=== PATIENT | female | born 1940 | race Caucasian/White ===

== ENCOUNTER → 2018-02-18 | Outpatient (CLI) | payer MEDICARE ==
[~2018-02-18] MED LIST: ALEN70 PO; Norco 5-325 Ta1 EACH PO; POLY500 PO; WARF10 PO
[2018-02-22 15:07] LABS: HPV 16 Negative (Negative); HPV 18 Negative (Negative); HPV OTHER HR TYPES Negative (Negative)
== END | disposition home or self-care (01) ==
LOC: LAB 17:12 → LAB SHORT 17:12
PROVIDERS: Nurse Practitioner Women's Health
DX: Z12.4 Encounter for screening for malignant neoplasm of cervix (principal)
CPT/HCPCS: 87624; G0123

== ENCOUNTER → 2018-07-23 | Outpatient (CLI) | payer MEDICARE ==
[2018-07-23 13:55] LABS: BASOPHILS ABSOLUTE AUTO 0.03 K/mm3 (0.00-0.23); BASOPHILS PERCENT AUTO 1 % (0-2); EOSINOPHILS ABSOLUTE AUTO 0.06 K/mm3 (0.00-0.68); EOSINOPHILS PERCENT AUTO 2 % (0-6); Hematocrit 41.4 % (33.0-51.0); Hemoglobin 13.6 g/dL (11.5-16.0); IMMATURE GRAN ABSOLUTE AUTO 0.01 K/mm3 (0.00-0.10); IMMATURE GRAN PERCENT AUTO 0 % (0-1); LYMPHOCYTES ABSOLUTE AUTO 1.02 K/mm3 (0.84-5.20); LYMPHOCYTES PERCENT AUTO 26 % (21-46); MONOCYTES ABSOLUTE AUTO 0.45 K/mm3 (0.16-1.47); MONOCYTES PERCENT AUTO 12 % (4-13); Mean Corpuscular HGB 30.9 pg (26.0-34.0); Mean Corpuscular HGB Conc 32.9 g/dL (31.5-36.5); Mean Corpuscular Volume 94 fL (80-100); Mean Platelet Volume 10.9 fL (9.1-12.4); NEUTROPHILS ABSOLUTE AUTO 2.29 K/mm3 (1.96-9.15); NEUTROPHILS PERCENT AUTO 59 % (41-73); RDW Coefficient Variation 12.4 % (11.7-14.2); White Blood Cell Count 3.86 K/mm3 (4.00-11.30)
[2018-07-23 14:13] LABS: Alanine Aminotransfer (ALT/SGP 24 U/L (12-78); Albumin, Blood 3.4 g/dL (3.4-5.0); Alk Phos 68 U/L (40-126); Anion Gap 7 mmol/L (6-16); Aspartate Aminotrans (AST/SGOT 23 U/L (12-37); Bilirubin, Total 0.4 mg/dL (0.1-1.0); Blood Urea Nitrogen 19 mg/dL (8-24); Bun/Creatinine Ratio 24.4 (12.0-20.0); CO2, Blood 30 mmol/L (21-32); Calcium, Blood 8.7 mg/dL (8.5-10.1); Chloride, Blood 102 mmol/L (98-108); Creatinine, Blood 0.78 mg/dL (0.40-1.00); Globulin, Blood 3.4 g/dL (2.2-4.0); Glomerular Filtration Rate >60 (60-); Glucose, Blood 101 mg/dL (70-99); Potassium, Blood 3.9 mmol/L (3.5-5.5); Sodium, Blood 139 mmol/L (136-145); Total Protein, Blood 6.8 g/dL (6.4-8.2)
[2018-07-23 14:22] LABS: Platelet Count 76 K/mm3 (150-400)
== END | disposition home or self-care (01) ==
LOC: LAB EV 13:51 → LAB SHORT 13:51
PROVIDERS: General Practice
DX: R07.9 Chest pain, unspecified (principal)
CPT/HCPCS: 80053; 83690; 85025

== ENCOUNTER 2019-04-19 13:34 | Inpatient (IN) | payer MEDICARE ==
[~2019-04-19] VITALS: Ht 160 cm; Wt 53.6 kg
[~2019-04-19 13:34] MED LIST changes: +ACET500 PO; +ASCO500 PO; +CALCITRATE200 MG PO; +CHOLEAST PO; +ERGO400 PO; +Estradiol1 MG VAG; +FISH OIL PO; +Glucosamine Ch1 EAC4 PO; +Hair, Skin & N1 EACH PO; +Lecithin-191200 MG PO; +MAGNESIUM OXID500 MG PO; +TIZANIDINE HCL2 MG PO; +TYLECOD3 PO; +VITAMIN B122500 MCG PO; +Vitamin E100 UNIT PO; +ZYNCOL30 MG PO
[2019-04-19 14:20] LABS: International Normalized Ratio 0.97; Prothrombin Time Results 10.3 Sec (9.7-11.5)
[2019-04-20] MEDS ORDERED: ENOX60I SC (06:53)
--- NOTE | 2019-04-20 16:22 | NUR ---
SHIFT SUMMARY: LENI HAD A GENERAL ANESTHETIC FOR HER RIGHT HIP ARTHROPLASTY DONE BY DR. ALEJANDRO. SHE IS ALERT AND ORIENTED, SITTING IN THE RECLINER AT BEDSIDE. SHE HAS HER CALL LIGHT IN REACH AND SHE IS ABLE TO MAKE HER NEEDS KNOWN. SHE IS TOLERATING PO INTAKE WELL. SHE HAS BEEN UP WALKING AND TOLERATED THAT WELL. SHE DID WORK WITH THERAPY THIS AFTERNOON. SHE HAS VISITORS IN THE ROOM.
[2019-04-21 04:19] LABS: BASOPHILS ABSOLUTE AUTO 0.02 K/mm3 (0.00-0.23); BASOPHILS PERCENT AUTO 0 % (0-2); EOSINOPHILS PERCENT AUTO 0 % (0-6); Hematocrit 29.1 % (33.0-51.0); Hemoglobin 8.9 g/dL (11.5-16.0); IMMATURE GRAN ABSOLUTE AUTO 0.02 K/mm3 (0.00-0.10); IMMATURE GRAN PERCENT AUTO 0 % (0-1); LYMPHOCYTES ABSOLUTE AUTO 1.04 K/mm3 (0.84-5.20); LYMPHOCYTES PERCENT AUTO 11 % (21-46); MONOCYTES ABSOLUTE AUTO 1.15 K/mm3 (0.16-1.47); MONOCYTES PERCENT AUTO 12 % (4-13); Mean Corpuscular HGB Conc 30.6 g/dL (31.5-36.5); Mean Corpuscular Volume 95 fL (80-100); Mean Platelet Volume 11.1 fL (9.1-12.4); NEUTROPHILS ABSOLUTE AUTO 7.72 K/mm3 (1.96-9.15); NEUTROPHILS PERCENT AUTO 78 % (41-73); Platelet Count 110 K/mm3 (150-400); RDW Coefficient Variation 13.4 % (11.7-14.2); RDW Standard Deviation 46.6 fL (35.1-46.3); Red Blood Cell Count 3.07 M/mm3 (3.80-5.20); White Blood Cell Count 9.95 K/mm3 (4.00-11.30)
[2019-04-21 04:29] LABS: International Normalized Ratio 1.02; Prothrombin Time Results 10.8 Sec (9.7-11.5)
[2019-04-21 04:32] LABS: Anion Gap 4 mmol/L (6-16); Blood Urea Nitrogen 13 mg/dL (8-24); Bun/Creatinine Ratio 19.4 (12.0-20.0); CO2, Blood 31 mmol/L (21-32); Calcium, Blood 8.1 mg/dL (8.5-10.1); Chloride, Blood 105 mmol/L (98-108); Creatinine, Blood 0.67 mg/dL (0.40-1.00); Glomerular Filtration Rate >60 (60-); Glucose, Blood 114 mg/dL (70-99); Potassium, Blood 3.5 mmol/L (3.5-5.5); Sodium, Blood 140 mmol/L (136-145)
--- NOTE | 2019-04-21 04:34 | NUR ---
SHIFT SUMMARY: PT POD #1 FOR RIGHT TOTAL HIP. DRESSINGS CDI WITH POLAR PACK IN PLACE. PT AMBULATING WITH FWW AND SBA. BP LOW T/O SHIFT. PT REPORTS THIS IS NORMAL FOR HER. H&H STABLE UPON MORNING LABS. PT ASYMPTOMATIC. PAIN MANAGED WITH TORADOL AND TYLENOL PER EMAR. VOIDING WELL AND ELSIE PO. FLUIDS INFUSING. PLAN FOR POSSIBLE DISCHARGE TODAY.
--- NOTE | 2019-04-21 15:29 | NUR ---
SHIFT SUMMARY PT A&OX4, LEFT FLOOR VIA WC WITH RN, WITH ALL PERSONAL POSSESSIONS INCLUDING DC PACKET, 2 AQUACEL DRESSINGS. PT REP HAVING SCRIPTS FILLED AT HOME FOR LOVENOX, COUMADIN, PAIN MED. DC INSTRUCTIONS PROVIDED. PT REP UNDERSTANDING THOSE INSTRUCTIONS INCLUDING 2 WK FU WITH SURGEON, OK TO SHOWER, NO TUB/JACUZZI, CHANGE DRESSINGS ON SUNDAYS/WEDNESDAYS, WHEN TO CALL THE DOCTOR. IV DC'D.
== END 2019-04-21 15:09 | disposition home or self-care (01) | DRG 470 ==
LOC: SURS 04-20 05:57 → PRE IP 04-20 07:30 → SURS 04-20 10:54
PROVIDERS: ADMIT Orthopaedic Surgery
PROC: 0SR904A Replacement of Right Hip Joint with Ceramic on Polyethylene Synthetic Substitute, Uncemented, Open Approach (ICD-10-PCS; principal; 2019-04-20 07:30)
DX: M16.11 Unilateral primary osteoarthritis, right hip (principal); D68.2 Hereditary deficiency of other clotting factors; Z86.718 Personal history of other venous thrombosis and embolism; Z79.01 Long term (current) use of anticoagulants; Z79.899 Other long term (current) drug therapy; Z88.0 Allergy status to penicillin; Z88.8 Allergy status to other drugs, medicaments and biological substances; Z87.891 Personal history of nicotine dependence
CPT/HCPCS: 36415; 72170; 80048; 82947; 83735; 85025; 85610; 85730; 86850; 86900; 86901; 88300; 97110; 97116; 97162; 97165; 97530; 97535; C1713; C1776; J0171; J0735; J1100; J1650; J1885; J2250; J2405; J2704; J2795; J3010; J3370; J7120

== ENCOUNTER 2019-06-03 14:04 | Emergency (ER) | payer MEDICARE ==
[~2019-06-03] VITALS: Ht 160 cm; Wt 51.3 kg
[~2019-06-03 14:04] MED LIST changes: +ENOX60I SC
== END 2019-06-03 16:30 | disposition home or self-care (01) ==
LOC: ER 14:04
DX: I82.5Z1 Chronic embolism and thrombosis of unspecified deep veins of right distal lower extremity (principal); Z88.1 Allergy status to other antibiotic agents; Z88.0 Allergy status to penicillin; Z79.899 Other long term (current) drug therapy; Z79.01 Long term (current) use of anticoagulants; Z87.891 Personal history of nicotine dependence; I82.409 Acute embolism and thrombosis of unspecified deep veins of unspecified lower extremity; R60.9 Edema, unspecified; I82.411 Acute embolism and thrombosis of right femoral vein; I82.811 Embolism and thrombosis of superficial veins of right lower extremity
CPT/HCPCS: 36416; 85610; 93971; 99283-25

== ENCOUNTER → 2020-04-22 | Outpatient (CLI) | payer MEDICARE ==
[~2020-04-22] MED LIST changes: +ACET325 PO; +ENOX60I; +ROXICODONE5 MG PO
[2020-04-22 17:21] LABS: International Normalized Ratio 0.97; Prothrombin Time Results 10.4 Sec (9.7-11.5)
== END | disposition home or self-care (01) ==
LOC: LAB EV 16:48 → LAB SHORT 16:48
PROVIDERS: Orthopaedic Surgery
DX: Z01.812 Encounter for preprocedural laboratory examination (principal)
CPT/HCPCS: 85610; 85730

== ENCOUNTER 2020-04-23 06:08 | Day surgery (SDC) | payer MEDICARE ==
[~2020-04-23] VITALS: Ht 162.6 cm; Wt 51.3 kg
[~2020-04-23 06:08] MED LIST changes: -ENOX60I; -ROXICODONE5 MG PO
--- NOTE | 2020-04-23 07:32 | NUR ---
History, Chart, Medications and Allergies reviewed before start of procedure. Pre-Op teaching done. Pt verbalizes understanding. Patient confirms NPO status and agrees with scheduled surgery.
--- NOTE | 2020-04-23 10:56 | NUR ---
ADMISSION TO UNIT PT ARRIVED TO UNIT AT APROX 1050 FROM PACU. AQUACEL DRESSING TO L ANTERIOR HIP C/D/I. PT DENIES PAIN. DERMATOMES L2-NO GROSS MVMT PRESENT BLE. PT DENIES PAIN.
--- NOTE | 2020-04-23 11:05 | NUR ---
THIS RN ASSUMING CARE OF PT, BEEN GIVEN REPORT.
--- NOTE | 2020-04-23 17:37 | NUR ---
PT REQ TO HAVE COUMADIN AT BEDTIME PER HER USUAL HOME REGIMEN.
--- NOTE | 2020-04-23 17:38 | NUR ---
SHIFT SUMMARY PT HAD PROCEDURE TODAY. PT BEEN UP AND WORKED WITH THERAPY. PT UP TO CHAIR. PT VOIDING, TOLERATING DIET. PT CONT TO REPORT MINIMAL PAIN.
[2020-04-24 06:00] LABS: BASOPHILS ABSOLUTE AUTO 0.02 K/mm3 (0.00-0.23); BASOPHILS PERCENT AUTO 0 % (0-2); EOSINOPHILS ABSOLUTE AUTO 0.01 K/mm3 (0.00-0.68); EOSINOPHILS PERCENT AUTO 0 % (0-6); Hematocrit 34.9 % (33.0-51.0); Hemoglobin 10.5 g/dL (11.5-16.0); IMMATURE GRAN ABSOLUTE AUTO 0.02 K/mm3 (0.00-0.10); IMMATURE GRAN PERCENT AUTO 0 % (0-1); LYMPHOCYTES ABSOLUTE AUTO 1.42 K/mm3 (0.84-5.20); LYMPHOCYTES PERCENT AUTO 19 % (21-46); MONOCYTES ABSOLUTE AUTO 0.82 K/mm3 (0.16-1.47); MONOCYTES PERCENT AUTO 11 % (4-13); Mean Corpuscular HGB 29.2 pg (26.0-34.0); Mean Corpuscular HGB Conc 30.1 g/dL (31.5-36.5); Mean Corpuscular Volume 97 fL (80-100); Mean Platelet Volume 11.3 fL (9.1-12.4); NEUTROPHILS ABSOLUTE AUTO 5.15 K/mm3 (1.96-9.15); NEUTROPHILS PERCENT AUTO 69 % (41-73); Platelet Count 82 K/mm3 (150-400); RDW Coefficient Variation 13.2 % (11.7-14.2); RDW Standard Deviation 47.4 fL (35.1-46.3); White Blood Cell Count 7.44 K/mm3 (4.00-11.30)
[2020-04-24 06:16] LABS: Anion Gap 5 mmol/L (6-16); Blood Urea Nitrogen 15 mg/dL (8-24); CO2, Blood 28 mmol/L (21-32); Calcium, Blood 8.6 mg/dL (8.5-10.1); Chloride, Blood 112 mmol/L (98-108); Creatinine, Blood 0.75 mg/dL (0.40-1.00); Glomerular Filtration Rate >60 (60-); Glucose, Blood 101 mg/dL (70-99); Magnesium, Blood 2.1 mg/dL (1.6-2.4); Potassium, Blood 3.9 mmol/L (3.5-5.5); Sodium, Blood 145 mmol/L (136-145)
--- NOTE | 2020-04-24 06:50 | NUR ---
SHIFT SUMMARY: LENI IS A&OX4. VSS, NO ACUTE EVENTS OVERNIGHT. AQUACELL TO LEFT HIP C/D&I. SHE IS TOLERATING PO INTAKE WELL. SHE REPORTS ADEQUATE PAIN CONTROL WITH APAP AND TORADOL. SHE IS A ONE PERSON ASSIST TO THE BATHROOM AND IS AMBULATING IN THE HALLWAY WITH THE FWW. LINK HOSE, PAS, AND POLAR PACK IN PLACE. PT USING K-PAD FOR COMFORT. SHE IS ABLE TO MAKE HER NEEDS KNOWN. SHE IS LYING IN BED WITH HER CALL LIGHT IN REACH. WILL REPORT TO DAY SHIFT RN.
--- NOTE | 2020-04-24 08:08 | NUR ---
BRAD HERE TO SEE PT, DISCUSSED MEDICATIONS INCLUDING LOVENOX AND COUMADIN WELL VITAMINS.
[2020-04-24] MEDS ORDERED: ENOX60I (08:50)
[2020-04-24] MEDS ORDERED: ROXICODONE5 MG PO (08:51)
--- NOTE | 2020-04-24 09:59 | NUR ---
THERAPY RECENTLY WORKING WITH PT.
--- NOTE | 2020-04-24 16:11 | NUR ---
PT WANTING TO WAIT TO SEE DR MAHONEY BEFORE GOING HOME, DR MAHONEY AWARE AND REPORTS WILL BE OVER AFTER CLINIC TO SEE PT, AFTER 5 PM. PT AWARE. PT BEEN ASSISTED WITH ADL'S PRN. PT BEEN CLEARED BY THERAPY TO GO HOME. PT BEEN UP AND AMBULATED MULT TIMES WITH ASSIST. PT BEEN INSTRUCTED ON POLAR PAC. PT WORKED WITH THERAPY EARLIER TODAY. PT HAS WALKER. PT HAS MULT PEOPLE ASSISTING WITH HER CARE AFTER LEAVING HOSPITAL PER PT.
--- NOTE | 2020-04-24 17:45 | NUR ---
dr mccray here to see pt.
--- NOTE | 2020-04-24 18:13 | NUR ---
DISCHARGE PT EDUCATED ON AND RECEIVED PRINTED DISCHARGE INSTRUCTIONS AND VERBALIZED AN UNDERSTANDING. NARCOTIC RX GIVEN TO PT AND EXTRA AQUACEL DRESSINGS GIVEN TO PT. IV DC'D. PT GATHERING ALL PERSONAL BELONGINGS AND CALLING FOR RIDE HOME.
--- NOTE | 2020-04-24 18:20 | NUR ---
PT RIDE HERE. PT SENT WITH ALL BELONGINGS, PAPERWORK, ICE MACHINE.
== END 2020-04-24 18:23 | disposition home or self-care (01) ==
LOC: ORSCMMR 06:08 → ORD 07:30 → ORSCMMR 07:30 → SURS 10:54 → ORSCMMR 10:54 → SURS 04-24 13:16 → ORSCMMR 04-24 18:23
PROVIDERS: Orthopaedic Surgery
PROC: 0SRB0JA Replacement of Left Hip Joint with Synthetic Substitute, Uncemented, Open Approach (ICD-10-PCS; principal; 2020-04-23 07:30)
DX: M16.12 Unilateral primary osteoarthritis, left hip (principal); D68.51 Activated protein C resistance; Z86.718 Personal history of other venous thrombosis and embolism; Z79.01 Long term (current) use of anticoagulants; Z79.899 Other long term (current) drug therapy
CPT/HCPCS: 72170; 80048; 83735; 85025; 88300; 97110; 97116; 97162; 97530; A9270; C1776; J0171; J0690; J0735; J1100; J1650; J1885; J2250; J2405; J2704; J2795; J3010; J7120

== ENCOUNTER 2021-09-27 19:23 | Emergency (ER) | payer MEDICARE ==
[~2021-09-27] VITALS: Ht 165.1 cm; Wt 77.1 kg
[~2021-09-27 19:23] MED LIST changes: +ENOX60I; +ROXICODONE5 MG PO
[2021-09-27 20:15] LABS: BASOPHILS ABSOLUTE AUTO 0.03 K/mm3 (0.00-0.23); BASOPHILS PERCENT AUTO 1 % (0-2); EOSINOPHILS ABSOLUTE AUTO 0.06 K/mm3 (0.00-0.68); EOSINOPHILS PERCENT AUTO 1 % (0-6); Hematocrit 44.1 % (33.0-51.0); Hemoglobin 14.4 g/dL (11.5-16.0); IMMATURE GRAN ABSOLUTE AUTO 0.01 K/mm3 (0.00-0.10); IMMATURE GRAN PERCENT AUTO 0 % (0-1); LYMPHOCYTES ABSOLUTE AUTO 1.48 K/mm3 (0.84-5.20); LYMPHOCYTES PERCENT AUTO 28 % (21-46); MONOCYTES ABSOLUTE AUTO 0.59 K/mm3 (0.16-1.47); MONOCYTES PERCENT AUTO 11 % (4-13); Mean Corpuscular HGB 31.2 pg (26.0-34.0); Mean Corpuscular HGB Conc 32.7 g/dL (31.5-36.5); Mean Corpuscular Volume 96 fL (80-100); Mean Platelet Volume 12.1 fL (9.1-12.4); NEUTROPHILS ABSOLUTE AUTO 3.08 K/mm3 (1.96-9.15); NEUTROPHILS PERCENT AUTO 59 % (41-73); Platelet Count 69 K/mm3 (150-400); RDW Coefficient Variation 12.6 % (11.7-14.2); RDW Standard Deviation 44.7 fL (35.1-46.3); Red Blood Cell Count 4.61 M/mm3 (3.80-5.20); White Blood Cell Count 5.25 K/mm3 (4.00-11.30)
[2021-09-27 20:17] LABS: Source, Urine Clean Catch
[2021-09-27 20:22] LABS: Appearance, Urine Clear (Clear); Bilirubin, Urine Neg (Neg); Blood, Urine Neg (Neg); Color, Urine Yellow (P-Yellow); Glucose Qualitative, Urine Neg (Neg); Ketones, Urine Neg (Neg); Leukocyte Esterase, Urine Neg (Neg); Nitrite, Urine Neg (Neg); Protein, Urine Neg (Neg); Urobilinogen, Urine NORM (Normal); pH, Urine 6.5 (5.0-8.0)
[2021-09-27 20:31] LABS: Alanine Aminotransfer (ALT/SGP 29 U/L (12-78); Albumin, Blood 3.7 g/dL (3.4-5.0); Albumin/Globulin Ratio 1.1 (0.8-1.8); Alk Phos 79 U/L (50-136); Anion Gap 6 mmol/L (6-16); Aspartate Aminotrans (AST/SGOT 25 U/L (12-37); Bilirubin, Total 0.5 mg/dL (0.1-1.0); Blood Urea Nitrogen 14 mg/dL (8-24); Bun/Creatinine Ratio 19.8 (12.0-20.0); CO2, Blood 26 mmol/L (21-32); Calcium, Blood 9.2 mg/dL (8.5-10.1); Chloride, Blood 109 mmol/L (98-108); Creatinine, Blood 0.71 mg/dL (0.40-1.00); Globulin, Blood 3.4 g/dL (2.2-4.0); Glomerular Filtration Rate >60 (60-); Glucose, Blood 99 mg/dL (70-99); Potassium, Blood 4.1 mmol/L (3.5-5.5); Sodium, Blood 141 mmol/L (136-145); Total Protein, Blood 7.1 g/dL (6.4-8.2)
[2021-09-27 21:16] LABS: International Normalized Ratio 2.26; Prothrombin Time Results 22.5 Sec (9.7-11.5)
[2021-09-27 22:00] LABS: Magnesium, Blood 2.3 mg/dL (1.6-2.4)
== END 2021-09-27 21:32 | disposition home or self-care (01) ==
LOC: ER 19:23
PROVIDERS: Student in an Organized Health Care Education/Training Program
DX: R41.89 Other symptoms and signs involving cognitive functions and awareness (principal); Z88.0 Allergy status to penicillin; Z88.8 Allergy status to other drugs, medicaments and biological substances; Z79.899 Other long term (current) drug therapy
CPT/HCPCS: 36415; 70450; 80053; 81003; 83735; 84484; 85025; 85610; 93005; 93010; 99284-25; A9270; J7030

== ENCOUNTER → 2022-09-08 | Outpatient (CLI) | payer MEDICARE | END | disposition home or self-care (01) | LOC: LAB SHORT 18:20 | DX: R30.0 Dysuria (principal); R42 Dizziness and giddiness | CPT/HCPCS: 87086 ==

== ENCOUNTER 2023-07-02 13:47 | Emergency (ER) | payer MEDICARE ==
[~2023-07-02] VITALS: Ht 160 cm; Wt 61.2 kg
[2023-07-02 14:20] LABS: BASOPHILS ABSOLUTE AUTO 0.03 K/mm3 (0.00-0.23); BASOPHILS PERCENT AUTO 1 % (0-2); EOSINOPHILS ABSOLUTE AUTO 0.06 K/mm3 (0.00-0.68); EOSINOPHILS PERCENT AUTO 1 % (0-6); Hematocrit 42.6 % (33.0-51.0); Hemoglobin 13.9 g/dL (11.5-16.0); IMMATURE GRAN ABSOLUTE AUTO 0.01 K/mm3 (0.00-0.10); IMMATURE GRAN PERCENT AUTO 0 % (0-1); LYMPHOCYTES ABSOLUTE AUTO 1.12 K/mm3 (0.84-5.20); LYMPHOCYTES PERCENT AUTO 22 % (21-46); MONOCYTES ABSOLUTE AUTO 0.39 K/mm3 (0.16-1.47); MONOCYTES PERCENT AUTO 8 % (4-13); Mean Corpuscular HGB 31.5 pg (26.0-34.0); Mean Corpuscular HGB Conc 32.6 g/dL (31.5-36.5); Mean Corpuscular Volume 97 fL (80-100); Mean Platelet Volume 12.5 fL (9.1-12.4); NEUTROPHILS ABSOLUTE AUTO 3.43 K/mm3 (1.96-9.15); NEUTROPHILS PERCENT AUTO 68 % (41-73); Platelet Count 56 K/mm3 (150-400); RDW Coefficient Variation 12.8 % (11.7-14.2); RDW Standard Deviation 45.8 fL (35.1-46.3); Red Blood Cell Count 4.41 M/mm3 (3.80-5.20); White Blood Cell Count 5.04 K/mm3 (4.00-11.30)
[2023-07-02 14:35] LABS: Albumin, Blood 3.4 g/dL (3.4-5.0); Albumin/Globulin Ratio 1.1 (0.8-1.8); Bilirubin, Total 0.4 mg/dL (0.1-1.0); Bun/Creatinine Ratio 26.5 (12.0-20.0); Calcium, Blood 8.4 mg/dL (8.5-10.1); Creatinine, Blood 0.68 mg/dL (0.40-1.00); Globulin, Blood 3.2 g/dL (2.2-4.0); Potassium, Blood 3.8 mmol/L (3.5-5.5); Total Protein, Blood 6.6 g/dL (6.4-8.2)
[2023-07-02 17:15] VITALS: BP 120/68
== END 2023-07-02 17:32 | disposition home or self-care (01) ==
LOC: ER 13:47
PROVIDERS: Physician Assistant
DX: R07.89 Other chest pain (principal); M81.0 Age-related osteoporosis without current pathological fracture; Z87.891 Personal history of nicotine dependence; Z79.01 Long term (current) use of anticoagulants; Z79.899 Other long term (current) drug therapy; Z88.0 Allergy status to penicillin; Z88.1 Allergy status to other antibiotic agents
CPT/HCPCS: 71046; 80053; 84484; 85025; 93005; 93010; 99285-25

== ENCOUNTER → 2023-07-21 | Outpatient (CLI) | payer MEDICARE | LOC: LAB 14:43 → LAB SHORT 14:43 | DX: D48.5 Neoplasm of uncertain behavior of skin (principal) | CPT/HCPCS: 88305 ==

== ENCOUNTER 2023-08-12 08:11 | Emergency (ER) | payer MEDICARE ==
[~2023-08-12] VITALS: Ht 160 cm; Wt 59.0 kg
[2023-08-12 09:32] LABS: BASOPHILS ABSOLUTE AUTO 0.02 K/mm3 (0.00-0.23); BASOPHILS PERCENT AUTO 0 % (0-2); EOSINOPHILS ABSOLUTE AUTO 0.08 K/mm3 (0.00-0.68); EOSINOPHILS PERCENT AUTO 1 % (0-6); Hematocrit 40.6 % (33.0-51.0); Hemoglobin 13.3 g/dL (11.5-16.0); IMMATURE GRAN ABSOLUTE AUTO 0.02 K/mm3 (0.00-0.10); IMMATURE GRAN PERCENT AUTO 0 % (0-1); LYMPHOCYTES ABSOLUTE AUTO 1.01 K/mm3 (0.84-5.20); LYMPHOCYTES PERCENT AUTO 12 % (21-46); MONOCYTES ABSOLUTE AUTO 0.76 K/mm3 (0.16-1.47); MONOCYTES PERCENT AUTO 9 % (4-13); Mean Corpuscular HGB Conc 32.8 g/dL (31.5-36.5); Mean Corpuscular Volume 95 fL (80-100); Mean Platelet Volume 11.8 fL (9.1-12.4); NEUTROPHILS ABSOLUTE AUTO 6.53 K/mm3 (1.96-9.15); NEUTROPHILS PERCENT AUTO 78 % (41-73); Platelet Count 55 K/mm3 (150-400); RDW Coefficient Variation 12.7 % (11.7-14.2); RDW Standard Deviation 43.8 fL (35.1-46.3); Red Blood Cell Count 4.29 M/mm3 (3.80-5.20); White Blood Cell Count 8.42 K/mm3 (4.00-11.30)
[2023-08-12 09:51] LABS: Source, Urine Clean Catch
[2023-08-12 09:58] LABS: Appearance, Urine Clear (Clear); Bilirubin, Urine Neg (Neg); Blood, Urine Neg (Neg); Glucose Qualitative, Urine Neg (Neg); Ketones, Urine Neg (Neg); Leukocyte Esterase, Urine Neg (Neg); Nitrite, Urine Neg (Neg); Protein, Urine Neg (Neg); Urobilinogen, Urine NORM (Normal)
[2023-08-12 10:00] LABS: Albumin, Blood 3.4 g/dL (3.4-5.0); Albumin/Globulin Ratio 1.1 (0.8-1.8); Bilirubin, Total 0.3 mg/dL (0.1-1.0); Bun/Creatinine Ratio 33.7 (12.0-20.0); Calcium, Blood 8.7 mg/dL (8.5-10.1); Creatinine, Blood 0.71 mg/dL (0.40-1.00); Globulin, Blood 3.1 g/dL (2.2-4.0); Potassium, Blood 3.8 mmol/L (3.5-5.5); Total Protein, Blood 6.5 g/dL (6.4-8.2)
[2023-08-12 10:15] VITALS: BP 103/65
[2023-08-12] MEDS ORDERED: OXAYDO5 M1 PO (10:21)
[2023-08-12 10:29] LABS: Color, Urine Pale Yellow (P-Yellow)
== END 2023-08-12 10:41 | disposition home or self-care (01) ==
LOC: ER 08:11
PROVIDERS: Physician Assistant
DX: S02.40EA Zygomatic fracture, right side, initial encounter for closed fracture (principal); Z87.891 Personal history of nicotine dependence; M81.0 Age-related osteoporosis without current pathological fracture; D68.2 Hereditary deficiency of other clotting factors; D66 Hereditary factor VIII deficiency; Z79.01 Long term (current) use of anticoagulants; W18.39XA Other fall on same level, initial encounter; Y93.01 Activity, walking, marching and hiking
CPT/HCPCS: 36415; 70450; 70486; 80053; 81003; 85025; 85610; 93005; 93010; 96374; 99284-25; J3010

== ENCOUNTER 2024-04-27 10:28 | Day surgery (SDC) | payer MEDICARE ==
[~2024-04-27] VITALS: Ht 160 cm; Wt 57.1 kg
[~2024-04-27 10:28] MED LIST changes: +Acetaminophen650 M1 PO; +DICLOFENAC SOD100 GM; +ESTRADIOL42.5 GM TOP; +FISH OIL 1,0001 EA10 PO; +GLUC500 PO; +LUTEIN40 MG PO; +Lactated Ringer's 1,000 ML IV ONE; +MULVITA PO; +MYRBETRIQ50 MG PO; +OXAYDO5 M1 PO; +TOCO1000 PO; +VITAMIN D31000 UNI1 PO
[2024-04-27] MEDS ORDERED: OXYCODONE-ACET1 EAC3 PO (12:15)
[2024-04-27] MEDS ORDERED: Lactated Ringer's 1,000 ML IV ONE ×2 (12:23→13:56)
[2024-04-27] MEDS ORDERED: CeFAZolin Sodium 2,000 MG VIAL ONE (12:27)
[2024-04-27] MEDS ORDERED: NS 50 ML IV ONE (12:27)
[2024-04-27] MEDS ORDERED: Dexamethasone Sod Phos 10 MG/ML 1ML VIAL ONE (12:45)
[2024-04-27] MEDS ORDERED: Midazolam HCl 1MG / ML 2ML Vial ONE (12:45)
[2024-04-27] MEDS ORDERED: Bupivacaine 0.5% HCl 5 MG/ML 30MLVIAL ONE (12:45)
[2024-04-27] MEDS ORDERED: EPINEPhrine HCl 1 MG/ML 1ML Amp ONE (12:45)
[2024-04-27] MEDS ORDERED: propofoL 20 ML IV ONE (13:17)
--- NOTE | 2024-04-27 13:17 | NUR ---
04/27/24 1317 Leonora Pollack TIMEOUT PERFORMED AT BEDSIDE AT [address] CHE PRIOR TO PREOP NERVE BLOCK. NERVE BLOCK STARTED AT 1300 AND ENDED AT 1304. PT PLACED ON 3L O2 VIA N/C AND SPO2, HR AND BP MONITORED THROUGHOUT PROCEDURE. PT TOLERATED BLOCK WELL.
[2024-04-27] MEDS ORDERED: ePHEDrine Sulfate 50 MG/ML 1ML Injection ONE (13:41)
--- NOTE | 2024-04-27 14:08 | NUR ---
04/27/24 1408 Padmini Church AXILLARY BLOCK PLACED IN KATRINA-OP.
[2024-04-27 15:42] VITALS: BP 120/69
--- NOTE | 2024-04-27 16:05 | NUR ---
04/27/24 1605 Annia Aguilera 1555: PATIENT ASSISTED TO BATHROOM 2 PA
== END 2024-04-27 17:23 | disposition home or self-care (01) ==
LOC: ORSCSDS 10:28
PROVIDERS: Orthopaedic Surgery
PROC: 0PSJ04Z Reposition Left Radius with Internal Fixation Device, Open Approach (ICD-10-PCS; principal; 2024-04-27 12:00)
DX: S52.572A Other intraarticular fracture of lower end of left radius, initial encounter for closed fracture (principal); W10.8XXA Fall (on) (from) other stairs and steps, initial encounter; Z91.81 History of falling; E78.5 Hyperlipidemia, unspecified; Z86.718 Personal history of other venous thrombosis and embolism; Z87.891 Personal history of nicotine dependence; D68.51 Activated protein C resistance; D66 Hereditary factor VIII deficiency; Z79.899 Other long term (current) drug therapy; Z79.01 Long term (current) use of anticoagulants
CPT/HCPCS: C1713; J0171; J0690; J1100; J2250; J2704; J7120

== ENCOUNTER 2024-10-25 19:11 | Emergency (ER) | payer MEDICARE ==
[~2024-10-25] VITALS: Ht 160 cm; Wt 56.7 kg
[~2024-10-25 19:11] MED LIST changes: -Lactated Ringer's 1,000 ML IV ONE; +OXYCODONE-ACET1 EAC3 PO
[2024-10-25 19:19] VITALS: BP 158/100
[2024-10-25 19:48] LABS: BASOPHILS ABSOLUTE AUTO 0.03 K/mm3 (0.00-0.23); BASOPHILS PERCENT AUTO 1 % (0-2); EOSINOPHILS ABSOLUTE AUTO 0.08 K/mm3 (0.00-0.68); EOSINOPHILS PERCENT AUTO 2 % (0-6); Hematocrit 40.4 % (33.0-51.0); Hemoglobin 13.1 g/dL (11.5-16.0); IMMATURE GRAN ABSOLUTE AUTO 0.01 K/mm3 (0.00-0.10); IMMATURE GRAN PERCENT AUTO 0 % (0-1); LYMPHOCYTES ABSOLUTE AUTO 1.47 K/mm3 (0.84-5.20); LYMPHOCYTES PERCENT AUTO 30 % (21-46); MONOCYTES ABSOLUTE AUTO 0.55 K/mm3 (0.16-1.47); MONOCYTES PERCENT AUTO 11 % (4-13); Mean Corpuscular HGB 30.5 pg (26.0-34.0); Mean Corpuscular HGB Conc 32.4 g/dL (31.5-36.5); Mean Corpuscular Volume 94 fL (80-100); NEUTROPHILS ABSOLUTE AUTO 2.81 K/mm3 (1.96-9.15); NEUTROPHILS PERCENT AUTO 57 % (41-73); Platelet Count 58 K/mm3 (150-400); RDW Coefficient Variation 12.6 % (11.7-14.2); RDW Standard Deviation 43.3 fL (35.1-46.3); Red Blood Cell Count 4.29 M/mm3 (3.80-5.20); White Blood Cell Count 4.95 K/mm3 (4.00-11.30)
[2024-10-25 19:55] LABS: Mean Platelet Volume 13.5 fL (9.1-12.4)
[2024-10-25 20:07] LABS: Albumin, Blood 3.7 g/dL (3.4-5.0); Albumin/Globulin Ratio 1.2 (0.8-1.8); Bilirubin, Total 0.4 mg/dL (0.1-1.0); Bun/Creatinine Ratio 36.2 (12.0-20.0); Calcium, Blood 9.2 mg/dL (8.5-10.1); Creatinine, Blood 0.69 mg/dL (0.40-1.00); Magnesium, Blood 2.4 mg/dL (1.6-2.4); Phosphorus, Blood 3.7 mg/dL (2.5-4.9); Potassium, Blood 4.1 mmol/L (3.5-5.5); Total Protein, Blood 6.7 g/dL (6.4-8.2)
[2024-10-25 20:27] LABS: Source, Urine Clean Catch
[2024-10-25 20:34] LABS: Bilirubin, Urine Neg (Neg); Blood, Urine Neg (Neg); Glucose Qualitative, Urine Neg (Neg); Ketones, Urine Neg (Neg); Leukocyte Esterase, Urine Neg (Neg); Nitrite, Urine Neg (Neg); Protein, Urine Neg (Neg); Specific Gravity, Urine 1.005 (1.003-1.022); Urobilinogen, Urine NORM (Normal)
[2024-10-25 20:36] LABS: Appearance, Urine Clear (Clear); Color, Urine Yellow (P-Yellow)
== END 2024-10-25 22:51 | disposition home or self-care (01) ==
LOC: ER 19:11
PROVIDERS: Student in an Organized Health Care Education/Training Program
DX: R22.0 Localized swelling, mass and lump, head (principal); Z88.1 Allergy status to other antibiotic agents; Z88.0 Allergy status to penicillin; Z79.899 Other long term (current) drug therapy; Z87.891 Personal history of nicotine dependence
CPT/HCPCS: 70450; 80053; 81003; 83735; 84100; 85025; 93005; 93010; 99284-25

== ENCOUNTER 2025-05-09 18:33 | Emergency (ER) | payer MEDICARE ==
[~2025-05-09] VITALS: Ht 160 cm; Wt 56.2 kg
[2025-05-09 19:44] LABS: Influenza A, PCR NEGATIVE (NEGATIVE); Influenza B, PCR NEGATIVE (NEGATIVE); Resp Syncytial Virus, PCR NEGATIVE (NEGATIVE); SARS-Cov-2 (COVID-19) PCR, MMC NEGATIVE (NEGATIVE)
[2025-05-09] MEDS ORDERED: ALBU90OI INH (21:28)
[2025-05-09 21:30] VITALS: BP 149/96
[2025-05-09] MEDS ORDERED: Dexamethasone Sod Phos 10 MG/ML 1ML VIAL PO ONE (21:30)
== END 2025-05-09 21:49 | disposition home or self-care (01) ==
LOC: ER 18:33
PROVIDERS: Physician Assistant
DX: T65.891A Toxic effect of other specified substances, accidental (unintentional), initial encounter (principal); J69.8 Pneumonitis due to inhalation of other solids and liquids; Z87.891 Personal history of nicotine dependence; Z88.0 Allergy status to penicillin; Z88.1 Allergy status to other antibiotic agents; Z79.899 Other long term (current) drug therapy
CPT/HCPCS: 71046; 87637; 99283-25; J1100